=== PATIENT | female | born 1960 | race Caucasian/White ===

== ENCOUNTER 2017-04-22 22:33 | Emergency (ER) | payer OTHER ==
[2017-04-23 02:28] VITALS: BP 158/88
== END 2017-04-23 02:28 | disposition home or self-care (01) ==
LOC: ED 22:33
DX: M51.36 Other intervertebral disc degeneration, lumbar region (principal); M54.40 Lumbago with sciatica, unspecified side; Z79.1 Long term (current) use of non-steroidal anti-inflammatories (NSAID)
CPT/HCPCS: J1885; J2270